=== PATIENT | female | born 2000 | race Caucasian/White ===

== ENCOUNTER 2022-02-05 14:05 | Emergency (ER) | payer BC, SELFPAY ==
[2022-02-05 14:17] VITALS: BP 117/78; PULSE 69; RESP 18; TEMP 36.6; O2SAT 98; BMI 35.5
--- NOTE | 2022-02-05 15:11 | ED.NURSE ---
Patient to exam room from lobby. Status unchanged.
--- NOTE | 2022-02-05 15:20 | US_ITS ---
Final Report Patient: STEVEN LAW Facility:?[facility] Patient ID:?[id number] Site Patient ID:?[id number]. Site :?[id number] Study:?US Abdomen -02/05/2022 4:31:31 PM Ordering Physician:?Ashu Awad Final Report: INDICATION: Right upper quadrant pain TECHNIQUE: Ultrasound abdomen limited. Sonographic images of the right upper quadrant were obtained using soares-scale and color Doppler images. COMPARISON: None FINDINGS: Liver: Normal in size diffuse fatty infiltration. No masses. No intrahepatic biliary dilatation. Gallbladder: Cholelithiasis normal wall thickness. No pericholecystic fluid. Common bile duct: 5 mm. Pancreas: Normal. The tail is not well seen. Right kidney: 10.1 cm. Normal echotexture and cortex. No masses, stones, or hydronephrosis. IMPRESSION: Cholelithiasis in an otherwise normal-appearing gallbladder. Normal common bile duct. Diffuse fatty infiltration of liver. Dictated by Rory Escobedo MD @ 02/05/2022 5:14:07 PM Dictated by: Rory Escobedo MD @ 02/05/2022 17:14:13 (Electronic Signature)
--- NOTE | 2022-02-05 15:23 | ED.GENADULT ---
HPI - General Adult General Time Seen by Provider: 15: Date Seen: 02/05/22 Chief complaint: Abdominal Pain Stated complaint: Abdominal and Back pain Diarrhea Time Seen by Provider: 02/05/22 15:06 Source: patient Mode of arrival: ambulatory Limitations: no limitations History of Present Illness HPI narrative: Patient is a 21-year-old female who has had intermittent abdominal pain. She has had pretty high fat diet recently, that seems to exacerbate her epigastric and right upper quadrant pain. She reports that the pain is improved some but still present a little, no fevers no chills, no jaundice. She has not had significant health problems in the past, she reports her last menstrual period was in September but it has been irregular she denies denies but could not say for sure if she is not . test will be ordered. No other significant health problems. She has had some loose stools as well. No blood in her stool, no vomiting. Related Data Home Medications Medication Instructions Recorded Confirmed No Known Home Medications 02/05/22 02/05/22 Allergies Allergy/AdvReac Type Severity Reaction Status Date / Time No Known Drug Allergies Allergy Verified 02/05/22 14:24 Review of Systems Status of ROS: Reports: 10 or more systems reviewed and unremarkable except as noted in History and below PFSH PFS Social History Smoking Status: Current every day smoker What tobacco products do you use: cigarettes Smoking packs per day: 1 Smoking cigarettes per day: 20.0 Years smoked: 10 Smoking pack-years: 10.00 Do you use any of these nicotine containing products: E-Cigarettes Second hand tobacco smoke exposure: No How often do you have a drink containing alcohol: monthly or less How often do you have six or more drinks on one occasion: Never AUDIT-C Alcohol total score: 1 Non-prescribed substance use: marijuana (any form) service: No Exam Narrative: Exam Narrative: Objective: Patient is alert orient x3, no distress, here with a friend HEENT is unremarkable no scleral icterus Neck is supple Pulses regular Abdomen obese benign nontender the exception of the right upper quadrant and epigastrium she has some mild tenderness to palpation no rebound, no masses . Extremities are no edema Neurologic nonfocal Peripheral perfusion is good, skin exam is warm and dry. Const: Vital Signs, click to edit/add: Vital Signs - 24 hr 02/05/22 14:17 02/05/22 15:30 Temperature 97.8 F Pulse Rate [Right Pulse Oximeter] 69 73 Respiratory Rate 18 16 Blood Pressure [Ri ght Upper Arm] 117/78 134/82 Pulse Oximetry 98 100 Course Course Hospital Course: Given the patient's epigastric right upper quadrant pain exacerbated by a fatty foods, would check a right upper quadrant ultrasound rule out cholecystitis or cholelithiasis. Will check electrolytes, liver function profile, alk-phos. test Vital Signs Vital signs: Initial Vital Signs Temperature 97.8 F 02/05/22 14:17 Temperature Source Temporal Artery Scan 02/05/22 14:17 Pulse Rate 69 02/05/22 14:17 Pulse Rhythm 02/05/22 14:17 Respiratory Rate 18 02/05/22 14:17 Blood Pressure 117/78 02/05/22 14:17 Blood Pressure Mean 91 02/05/22 14:17 Blood Pressure Position Sitting 02/05/22 14:17 Pulse Oximetry 98 02/05/22 14:17 Oxygen Delivery Method 02/05/22 14:17 Vital Signs Temperature 97.8 F 02/05/22 14:17 Pulse Rate 69 02/05/22 14:17 Respiratory Rate 18 02/05/22 14:17 Blood Pressure 117/78 02/05/22 14:17 Pulse Oximetry 98 02/05/22 14:17 Temperature 97.8 F 02/05/22 14:17 Pulse Rate 73 02/05/22 15:30 Respiratory Rate 16 02/05/22 15:30 Blood Pressure 134/82 02/05/22 15:30 Pulse Oximetry 100 02/05/22 15:30 Medical Decision Making MDM Narrative Medical decision making narrative: Patient's ultrasound of her right upper quadrant that shows gallstones , no elevation in size of common bile duct, no common bile duct stones noted or stones in the cystic neck. Liver function profile looks unremarkable. White blood count looks normal. Suspect she has biliary colic, especially with its exacerbation with fatty type foods. Would recommend she consult with General surgery. We will set up an appointment for her, light diet in the interim. Lab Data Labs: Lab Results 02/05/22 02/05/22 Range/Units 15:35 15:46 WBC 12.28 H (4.50-11.00) K/uL RBC 5.21 H (4.00-5.20) m/uL Hgb 14.0 (12.0-16.0) gm/dL Hct 42.8 (33.0-51.0) % MCV 82 (80-100) fL MCH 27 (26-34) pg MCHC 33 (32-36) gm/dL RDW Coeff of Juan 13.8 (11.5-15.5) % Plt Count 346 (140-440) K/uL Neut % (Auto) 73.5 H (42.0-72.0) % Lymph % (Auto) 20.6 (20-44) % Alexander % (Auto) 5.0 (0.0-11.0) % Eos % (Auto) 0.5 (0.0-7.0) % Baso % (Auto) 0.2 (0.0-3.0) % Neut # (Auto) 9.00 H (1.7-7.0) K/uL Lymph # (Auto) 2.50 (0.90-2.90) K/uL Alexander # (Auto) 0.60 (0.00-0.90) K/UL Eos # (Auto) 0.10 (0.00-0.50) K/uL Baso # (Auto) 0.00 (0.00-0.30) K/uL Abs Immat Gran (auto) 0.03 (0.00-0.30) K/uL Sodium 139 (135-149) mmol/L Potassium 4.1 (3.6-5.1) mmol/L Chloride 106 (96-114) mmol/L Carbon Dioxide 23 (20-32) mmol/L BUN 8 (5-24) mg/dL Creatinine 0.7 (0.5-1.5) mg/dL Estimated Creat Clear 131.74 Glucose 94 (60-115) mg/dL Calcium 9.6 (8.4-10.6) mg/dL Total Bilirubin 0.4 (0.1-1.5) mg/dL Direct Bilirubin 0.4 (0.0-0.5) mg/dL AST 26 (12-35) U/L ALT 27 (4-35) U/L Alkaline Phosphatase 112 (40-150) U/L C-Reactive Protein < 0.5 L (0.5-1.0) mg/dL Albumin 4.6 (3.3-5.0) g/dL Discharge Plan Discharge Clinical Impression: Biliary colic Condition: Stable Instructions: Biliary Colic (ED) Activity Level: No Restrictions Discharge Diet: Low Fat/Low Cholesterol Prescriptions: No Action No Known Home Medications 0RF Follow Up/Referrals: Chandan Palmer DO [Primary Care Provider] - Stand Alone Forms: MyHealth Info Instructions
[2022-02-05 15:30] VITALS: BP 134/82; PULSE 73; RESP 16; O2SAT 100
[2022-02-05 16:04] LABS: Albumin* 4.6 g/dL (3.3-5.0); Chloride* 106 mmol/L (96-114)
[2022-02-05 16:05] LABS: Potassium* 4.1 mmol/L (3.6-5.1); Sodium* 139 mmol/L (135-149)
[2022-02-05 16:06] LABS: Basophils Percent Auto 0.2 % (0.0-3.0); Eosinophils Percent Auto 0.5 % (0.0-7.0); Hematocrit 42.8 % (33.0-51.0); Immature Granulocytes Abs Auto 0.03 K/uL (0.00-0.30); Lymphocytes Percent Auto 20.6 % (20-44); Mean Corpuscular HGB Conc 33 gm/dL (32-36); Mean Corpuscular Hemoglobin 27 pg (26-34); Mean Corpuscular Volume 82 fL (80-100); Neutrophils Percent Auto 73.5 % (42.0-72.0); Platelet Count* 346 K/uL (140-440); RDW Coefficient of Variation % 13.8 % (11.5-15.5); Red Blood Count 5.21 m/uL (4.00-5.20); White Blood Count* 12.28 K/uL (4.50-11.00)
[2022-02-05 16:07] LABS: Creatinine* 0.7 mg/dL (0.5-1.5); Est. Creatinine Clearance* 131.74; Estimated Glomerular Filt Rate 125.33
[2022-02-05 16:08] LABS: Alanine Aminotransferase* 27 U/L (4-35); Alkaline Phosphatase* 112 U/L (40-150); Aspartate Amino Transferase* 26 U/L (12-35); Bilirubin Direct* 0.4 mg/dL (0.0-0.5); Bilirubin Total* 0.4 mg/dL (0.1-1.5); Blood Urea Nitrogen* 8 mg/dL (5-24); Calcium* 9.6 mg/dL (8.4-10.6); Carbon Dioxide* 23 mmol/L (20-32); Glucose* 94 mg/dL (60-115)
[2022-02-05 16:11] LABS: C Reactive Protein* < 0.5 mg/dL (0.5-1.0)
[2022-02-05 17:05] LABS: HCG Qualitative Serum* Negative (Negative)
[2022-02-05 17:14] LABS: Slide Review Reflex No
[2022-02-05 17:15] VITALS: BP 125/68; PULSE 59; RESP 16; O2SAT 98
[2022-02-05 19:22] LABS: Total Protein* 7.5 g/dL (6.0-8.3)
== END 2022-02-05 17:14 ==
PROVIDERS: Emergency Provider Family Medicine; PCP Pediatrics
DX: K80.20 Calculus of gallbladder without cholecystitis without obstruction (principal)
CPT/HCPCS: 36415; 76705; 80048; 80076; 84703; 85025; 86140; 99284

== ENCOUNTER 2024-08-22 08:57 | Outpatient (CLI) | payer OTHER, SELFPAY | END 2024-08-22 08:58 | disposition home or self-care (01) | LOC: WOUND 09:01 | PROVIDERS: Visit Provider Nurse Practitioner Family | DX: O90.0 Disruption of cesarean delivery wound (principal) | CPT/HCPCS: 97602; G0463 ==

== ENCOUNTER 2024-08-29 08:48 | Outpatient (CLI) | payer OTHER, SELFPAY | END 2024-08-29 08:49 | disposition home or self-care (01) | LOC: WOUND 08:49 | PROVIDERS: Visit Provider Nurse Practitioner Family | DX: O90.0 Disruption of cesarean delivery wound (principal) | CPT/HCPCS: 97597 ==

== ENCOUNTER 2024-09-05 08:51 | Outpatient (CLI) | payer OTHER, SELFPAY | END 2024-09-05 08:52 | disposition home or self-care (01) | LOC: WOUND 08:51 | PROVIDERS: Visit Provider Nurse Practitioner Family | DX: O90.0 Disruption of cesarean delivery wound (principal) | CPT/HCPCS: 97597 ==

== ENCOUNTER 2024-09-12 08:59 | Outpatient (CLI) | payer OTHER, SELFPAY | END 2024-09-12 09:00 | disposition home or self-care (01) | LOC: WOUND 08:59 | PROVIDERS: Visit Provider Nurse Practitioner Family | DX: O90.0 Disruption of cesarean delivery wound (principal) | CPT/HCPCS: 97602 ==

== ENCOUNTER 2024-09-19 09:04 | Outpatient (CLI) | payer OTHER, SELFPAY | END 2024-09-19 09:05 | disposition home or self-care (01) | LOC: WOUND 09:04 | PROVIDERS: Visit Provider Nurse Practitioner Family | DX: O90.0 Disruption of cesarean delivery wound (principal) | CPT/HCPCS: 97597 ==

== ENCOUNTER 2024-09-26 08:58 | Outpatient (CLI) | payer OTHER, SELFPAY | END 2024-09-26 08:59 | disposition home or self-care (01) | LOC: WOUND 08:58 | PROVIDERS: Visit Provider Nurse Practitioner Family | DX: O90.0 Disruption of cesarean delivery wound (principal) | CPT/HCPCS: 97597 ==

== ENCOUNTER 2024-10-10 08:56 | Outpatient (CLI) | payer OTHER, SELFPAY | END 2024-10-10 08:57 | disposition home or self-care (01) | LOC: WOUND 08:56 | PROVIDERS: Visit Provider Nurse Practitioner Family | DX: Z09 Encounter for follow-up examination after completed treatment for conditions other than malignant neoplasm (principal); O90.0 Disruption of cesarean delivery wound | CPT/HCPCS: G0463 ==